=== PATIENT | male | born 1985 | race African-American/Black ===

== ENCOUNTER 2020-11-18 12:20 | Emergency (ER) | payer OTHER, SELFPAY ==
[2020-11-18 12:42] VITALS: BP 114/81; PULSE 95; RESP 16; TEMP 37.1; O2SAT 96; BMI 27.3
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
== END 2020-11-18 15:03 | disposition home or self-care (01) ==
PROVIDERS: Emergency Provider Emergency Medicine
DX: G89.29 Other chronic pain (principal); M25.531 Pain in right wrist
CPT/HCPCS: 99283

== ENCOUNTER 2020-12-11 15:49 | Emergency (ER) | payer OTHER, SELFPAY ==
[2020-12-11 16:28] VITALS: BP 126/78; PULSE 110; RESP 18; TEMP 36.9; O2SAT 95; BMI 23.6
--- NOTE | 2020-12-11 17:45 | ED_ITS ---
HPI - Extremity Problem General Chief complaint: Extremity Injury, Upper Stated complaint: follow up hand injury Source: patient Mode of arrival: ambulatory Limitations: no limitations History of Present Illness HPI Narrative: 35-year-old male with chronic right hand pain presents for evaluation and medical clearance to return back to work. Does not report any significant complaints, and is requesting a refill for naproxen. Complaint: extremity pain Onset (ago): year(s) Pain Consistency: intermittent Location: right and upper extremity Severity scale (1-10): 5 Quality: aching Radiation: none Relieving factors: medication Exacerbating factors: range of motion Associated symptoms: denies other symptoms Related Data Previous Rx's Medication Instructions Recorded acetaminophen [Tylenol Extra 500 mg PO Q6H PRN #20 tab 11/18/20 Strength] naproxen 500 mg PO BID PRN 10 Days #20 tab 11/18/20 naproxen 500 mg PO BID PRN #60 tab 12/11/20 Allergies Allergy/AdvReac Type Severity Reaction Status Date / Time No Known Allergies Allergy Verified 12/11/20 16:25 Review of Systems Review of Systems: Constitutional: No Fever, No Chills ENT/Mouth: No Ear Pain, No Hoarseness, No sore throat Eyes: No Eye Pain, No Swelling, No Redness, No Foreign Body Cardiovascular: No Chest Pain, No SOB Respiratory: No Cough, No Dyspnea Gastrointestinal: No Nausea, No Vomiting, No Diarrhea, No abdominal Pain Genitourinary: No Dysuria, No Hematuria Musculoskeletal: positive joint pain, No Myalgias, No Joint Swelling Skin: No Skin lacerations, No rash Neuro: No Weakness, No Numbness, No Paresthesias, No Loss of Consciousness, No Dizziness, No Headache Psych: No Anxiety/Panic, No Depression Heme/Lymph: no easy bruising, no Lymphadenopathy Endocrine: No Polyuria, No Polydipsia Yes all other systems are reviewed and are negative [facility] Past Medical History Medical History (Updated 12/12/20 @ 00:00 by Background Daemon) No known health problems Social History Social History Advance Directives: No Advance Directives Information Provided: Yes Physical Exam Vital Signs: Vital Signs: Last Vital Signs Temp 98.5 F 12/11/20 16:28 Pulse 110 H 12/11/20 16:28 Resp 18 12/11/20 16:28 BP 126/78 12/11/20 16:28 Pulse Ox 95 12/11/20 16:28 Body Mass Index 23.6 Appearance: Alert. Oriented X3. No acute distress. Eyes: Pupils equal, round and reactive to light. ENT: Pharynx normal. Neck: Normal inspection. Neck supple. CVS: Normal heart rate and rhythm. Pulses normal. Respiratory: No respiratory distress. Breath sounds normal. Abdomen: Soft and nontender. Skin: Skin warm and dry. Normal skin color. Normal skin turgor. Extremities: No lower extremity edema. Full range of motion to bilateral upper extremities, strength 5/5. Neuro: No motor deficit. No sensory deficit. Course Course Course Narrative: 35-year-old male presents for evaluation of his right hand. Was seen about 2 weeks ago for similar circumstances and was given naproxen and Tylenol as a prescription. Patient presents for work note and refill for naproxen. Patient is verbally aggressive, states that he needs to leave soon because he has to go to work. Patient has full range of motion to the extremities, strength 5/5. No indication of deficit noted. Naproxen was refilled, patient was reminded that this is an emergency department and that he should speak respectfully to staff. Patient was discharged home. MDM - Extremity (Nontraumatic) MDM Narrative Medical decision making narrative: Chronic right upper extremity pain Medical Records Attestation: I reviewed the patient's medical records. Discharge Plan Discharge Clinical Impression: Chronic hand pain Patient Disposition: Home, Self-Care Instructions: Chronic Pain (ED) Additional Instructions: You were evaluated for chronic right hand pain. We prescribed naproxen 500 mg twice a day. Please follow-up with primary care provider for further workup. Thank you for choosing this emergency department for evaluation. Please follow-up with primary care physician as needed. Return to the emergency department for any new, concerning, or worsening symptoms. Prescriptions: New naproxen 500 mg tablet,delayed release (DR/EC) 500 mg PO BID PRN (Reason: pain) Qty: 60 RF: 0 No Action acetaminophen [Tylenol Extra Strength] 500 mg tablet 500 mg PO Q6H PRN (Reason: pain or fever) Qty: 20 RF: 0 naproxen 500 mg tablet 500 mg PO BID PRN (Reason: pain) 10 Days Qty: 20 RF: 0 Stand Alone Forms: Work/School Release Interventions: ED Discharge Assessment Last Done: 12/11/20 18:07 Discharge Date/Time: 12/11/20 18:10
== END 2020-12-11 18:10 | disposition home or self-care (01) ==
PROVIDERS: Emergency Provider Emergency Medicine Emergency Medical Services
DX: M79.641 Pain in right hand (principal); Z79.899 Other long term (current) drug therapy
CPT/HCPCS: 99283

== ENCOUNTER 2020-12-18 11:52 | Emergency (ER) | payer OTHER, SELFPAY ==
--- NOTE | ~2020-12-18 | XR_ITS ---
EXAMINATION: XR WRIST, RIGHT CLINICAL INFORMATION: Right wrist pain. COMPARISON: None TECHNIQUE: PA, lateral, and oblique views of the right wrist. FINDINGS: Soft tissue swelling along the distal ulna. Surgical dori along the distal forearm from previous intervention. No bony erosive changes, acute fracture or subluxation seen. XR/XR wrist RT min 3V IMPRESSION: Soft tissue swelling along the distal ulna. There is no underlying bony abnormality. There are surgical dori in the distal forearm from previous intervention.
[2020-12-18 13:15] VITALS: BP 149/92; PULSE 65; RESP 16; TEMP 37.1; O2SAT 100; BMI 17.4
--- NOTE | 2020-12-18 13:19 | ED.EXTPRO ---
HPI - Extremity Problem General Chief complaint: Extremity Injury, Upper <MAEVE Gauthier - Last Filed: 12/23/20 14:14> Stated complaint: MEDICATION AND HAND ISSUE <MAEVE Gauthier - Last Filed: 12/23/20 14:14> Time Seen by Provider: 12/18/20 13:19 <MAEVE Gauthier - Last Filed: 12/23/20 14:14> History of Present Illness HPI Narrative: Patient complains of pain in the right hand for some years since an injury many years ago, no new injury, no weakness or numbness <MAEVE Gauthier Last Filed: 12/23/20 14:14> Related Data Home medications: Previous Rx's Medication Instructions Recorded acetaminophen [Tylenol Extra 500 mg PO Q6H PRN #20 tab 11/18/20 Strength] naproxen 500 mg PO BID PRN 10 Days #20 tab 11/18/20 naproxen 500 mg PO BID PRN #60 tab 12/11/20 acetaminophen 1,000 mg PO Q6H PRN #30 tab 12/18/20 naproxen [Naprosyn] 500 mg PO BID PRN #30 tab 12/18/20 <MAEVE Gauthier - Last Filed: 12/23/20 14:14> Allergies/Adverse reactions: Allergies Allergy/AdvReac Type Severity Reaction Status Date / Time No Known Allergies Allergy Verified 12/11/20 16:25 <MAEVE Gauthier - Last Filed: 12/23/20 14:14> Review of Systems Review of Systems: Positive for right hand pain Negatives are no fever no chills no dizziness no weakness no neck pain no radiating pain no back pain, no numbness weakness or tingling no skin rash <MAEVE Gauthier - Last Filed: 12/23/20 14:14> Yes all other systems are reviewed and are negative <MAEVE Gauthier - Last Filed: 12/23/20 14:14> [facility] Past Medical History Source: nursing notes reviewed <MAEVE Gauthier Last Filed: 12/23/20 14:14> Medical History: Medical History (Updated 12/19/20 @ 00:01 by Mariana Griffin) No known health problems <MAEVE Gauthier Last Filed: 12/23/20 14:14> Social History Social History: Social History Advance Directives: No Advance Directives Information Provided: Yes <MAEVE Gauthier - Last Filed: 12/23/20 14:14> Physical Exam Vital Signs: Vital Signs: Last Vital Signs Temp 98.7 F 12/18/20 13:15 Pulse 65 12/18/20 13:15 Resp 16 12/18/20 13:15 BP 149/92 H 12/18/20 13:15 Pulse Ox 100 12/18/20 13:15 Body Mass Index 17.4 <MAEVE Gauthier - Last Filed: 12/23/20 14:14> Vital Signs: Last Vital Signs Temp 98.7 F 12/18/20 13:15 Pulse 65 12/18/20 13:15 Resp 16 12/18/20 13:15 BP 149/92 H 12/18/20 13:15 Pulse Ox 100 12/18/20 13:15 Body Mass Index 17.4 <Dannie Fuchs MD - Last Filed: 01/30/21 18:03> General appearance no acute distress The neck is supple The back has full range of motion No tenderness to the neck or the back Extremities full range of motion x4 Right hand exam the right hand and wrist demonstrate of closed surgical scar, there is no discharge no swelling no redness, there is full range of motion in the wrist and all the fingers, no evidence of tendon impairment on flexion or extension, vascular intact distal, motor and sensation are intact Other extremities normal Neuro no gross motor or sensory deficit Skin no rash <MAEVE Gauthier - Last Filed: 12/23/20 14:14> Course Course Course Narrative: X-ray showed multiple surgical dori, no evidence of any new fracture It is explained through interpreter translator that this chronic pain which has resulted in 3 ER visits may need the evaluation of the hand and wrist specialist so he is given the name of our orthopedist No emergent condition now no sign of infection no sign of any neurologic impairment <MAEVE Gauthier - Last Filed: 12/23/20 14:14> I have reviewed the chart <Dannie Fuchs MD - Last Filed: 01/30/21 18:03> Discharge Plan Discharge Clinical Impression: Chronic pain of right hand <MAEVE Gauthier - Last Filed: 12/23/20 14:14> Patient Disposition: Home, Self-Care <MAEVE Gauthier - Last Filed: 12/23/20 14:14> Additional Instructions: Follow with orthopedic hand specialist for evaluation of chronic pain in hand Return any concerns X-ray showed old surgical dori but no significant bony abnormality <MAEVE Gauthier - Last Filed: 12/23/20 14:14> Prescriptions: New acetaminophen 500 mg tablet 1,000 mg PO Q6H PRN (Reason: pain) Qty: 30 RF: 0 naproxen [Naprosyn] 500 mg tablet 500 mg PO BID PRN (Reason: pain) Qty: 30 RF: 0 No Action acetaminophen [Tylenol Extra Strength] 500 mg tablet 500 mg PO Q6H PRN (Reason: pain or fever) Qty: 20 RF: 0 naproxen 500 mg tablet 500 mg PO BID PRN (Reason: pain) 10 Days Qty: 20 RF: 0 naproxen 500 mg tablet,delayed release (DR/EC) 500 mg PO BID PRN (Reason: pain) Qty: 60 RF: 0 <MAEVE Gauthier - Last Filed: 12/23/20 14:14> Referrals: Sierra Zhu MD [Physician] - 2 days (Chronic right hand pain) <MAEVE Gauthier - Last Filed: 12/23/20 14:14> Stand Alone Forms: Work/School Release <MAEVE Gauthier - Last Filed: 12/23/20 14:14> Interventions: ED Discharge Assessment Last Done: 12/18/20 14:46 <MAEVE Gauthier - Last Filed: 12/23/20 14:14> Discharge Date/Time: 12/18/20 14:47 <MAEVE Gauthier - Last Filed: 12/23/20 14:14>
== END 2020-12-18 14:47 | disposition home or self-care (01) ==
PROVIDERS: Emergency Provider Emergency Medicine
DX: G89.29 Other chronic pain (principal); M79.641 Pain in right hand
CPT/HCPCS: 73110; 99283